=== PATIENT | male | born 1945 | race Caucasian/White ===

== ENCOUNTER → 2022-10-15 | Outpatient (CLI) | payer MEDICARE, OTHER, SELFPAY ==
--- NOTE | 2022-10-15 06:25 | ECHOCS_ITS ---
Reason For Study: HTN Procedure This was a 2D Doppler, Color Flow transthoracic echocardiogram. Contrast injection was performed. Exam performed in department. Left Ventricle Normal LV size. Left ventricular systolic function is normal. The estimated ejection fraction is 65 %. Stage 1 diastolic dysfunction. No regional wall motion abnormalities noted. Right Ventricle Normal RV size. Normal systolic function. Atria Normal left atrium. Normal right atrium. Mitral Valve Normal mitral valve. Tricuspid Valve Normal tricuspid valve. Aortic Valve Trisinus/trileaflet aortic valve. Pulmonic Valve Normal pulmonic valve. Great Vessels Normal aortic root. The pulmonary artery is normal size. Normal inferior vena cava. Pericardium/Pleural No pericardial effusion. Medication Diluted definity 2.5ml given slow IV push to enhance endocardial definition. MMode/2D Measurements & Calculations LVIDd: 6.5 cm IVSd: 1.2 cm Ao root diam: 3.7 cm LVIDs: 4.4 cm LVPWd: 1.1 cm RVDd: 3.4 cm FS: 32.0 % LAV(MOD-bp): 48.3 ml LVAd ap4: 43.0 cm2 SV(MOD-sp4): 101.5 ml LAV(MOD-bp) Indexed: 18.9 ml/m2 LVLd ap4: 8.5 cm LAV(MOD-sp2): 52.0 ml EDV(MOD-sp4): 177.2 ml LAV(MOD-sp4): 45.8 ml EDV(sp4-el): 185.2 ml LVAs ap4: 26.3 cm2 LVLs ap4: 8.0 cm ESV(MOD-sp4): 75.6 ml ESV(sp4-el): 73.1 ml EF(MOD-sp4): 57.3 % EF(sp4-el): 60.5 % SV(sp4-el): 112.1 ml LA A4 area: 17.9 cm2 LA dimension(2D): 3.9 cm RA A4 area: 10.2 cm2 Time Measurements MV dec time: 0.31 sec Doppler Measurements & Calculations MV E max charles: 66.8 cm/sec Lat Peak E' Charles: 7.2 cm/sec Med Peak E' Charles: 6.4 cm/sec MV A max charles: 78.1 cm/sec E/E' lat: 9.2 E/E' med: 10.5 MV E/A: 0.86 MV dec slope: 218.4 cm/sec2 Ao V2 max: 139.6 cm/sec LV V1 max: 102.9 cm/sec Ao max P.8 mmHg LV V1 max P.2 mmHg Ao V2 mean: 98.1 cm/sec Ao mean P.4 mmHg Ao V2 VTI: 33.2 cm PA V2 max: 89.9 cm/sec ECHO/Echo Complete W/ Contrast Interpretation Summary Normal LV size. Left ventricular systolic function is normal. The estimated ejection fraction is 65 %. Stage 1 diastolic dysfunction. Ordering Physician: John Paul Yen Referring Physician: Sander Colón Performed By: Lalita Snyder, JAKOB, RVT
--- NOTE | 2022-10-15 15:21 | STRESSREP ---
Stress Test Report Pharmacologic myocardial perfusion stress test. 77-year-old man with a history of hypertension Resting EKG demonstrates sinus bradycardia with a rate of 59 bpm. Resting blood pressure is 148/74 mmHg. 0.4 mg of regadenoson was infused per usual protocol followed by rapid intravenous saline flush injection. Continuous EKG monitoring was performed. The maximum heart rate was 98 bpm which was 67% of max impacted heart rate the maximum workload was 1 metabolic equivalent. At rest there were no ST or T wave changes noted to suggest ischemia and at peak infusion nonspecific ST changes were noted which did not meet the criteria for ischemia. No clinical angina is noted. The final blood pressure was 150/64 mmHg. Myocardial perfusion protocol. 14.9 mCi of technetium 99m sestamibi was injected at rest. 0.4 mg of regadenoson was infused per usual protocol. At peak infusion 45 mCi of technetium 99m sestamibi was injected stress images were obtained stress and rest images were reconstructed and compared in the short axis vertical long and horizontal long axis. Gated images were also obtained. Perfusion SPECT analysis: Review of the stress images demonstrate normal uptake of tracer noted in all areas of the myocardium. The resting images similar demonstrated normal uptake of tracer noted in all areas of the myocardium. No areas of reversibility are noted to suggest ischemia and no previous infarct is noted. Conclusion: Normal pharmacologic myocardial perfusion stress test.
== END | disposition home or self-care (01) ==
LOC: CVS 06:24
PROVIDERS: PCP Family Medicine; Referring Provider Internal Medicine Cardiovascular Disease; Visit Provider Internal Medicine Cardiovascular Disease
DX: I10 Essential (primary) hypertension (principal); R94.31 Abnormal electrocardiogram [ECG] [EKG]
CPT/HCPCS: 78452; 93017; 93306; A9500; Q9957; A4216; C8929; J2785

== ENCOUNTER → 2023-11-29 | Outpatient (CLI) | payer MEDICARE, OTHER, SELFPAY ==
[2023-11-29 11:56] LABS: Absolute Lymphocyte Count 1.76 X10^3/uL (0.83-4.51); Absolute Neutrophil Count 4.1 X10^3/uL (2.0-7.7); Basophil# 0.06 X10^3/uL; Basophil% 0.9 % (0-1); Eosinophil# 0.16 X10^3/uL; Eosinophils% 2.4 % (0-5); Hematocrit 40.4 % (40-54); Lymphocyte # 1.76 X10^3/ul (0.83-4.51); Lymphocyte % 26.2 % (19-41); Mean Corp Hgb Conc 32.2 g/dL (32-36); Mean Corpuscular Hgb 28.9 pg (27.0-32.0); Mean Corpuscular Volume 89.8 fL (80-94); Mean Platelet Vol. 11.3 fl (6.2-12.0); Monocyte# 0.63 X10^3/uL; Monocyte% 9.4 % (0-10); NRBC Flagged by Analyzer 0 % (0-5); Neutrophil # 4.09 X10^3/uL (2.7-7.7); Neutrophil % 60.7 % (47-70); Platelet Count 236 K/mm3 (150-450); RBC Distribution Width CV 13.1 % (11.6-14.6); RBC Distribution Width SD 42.6 fl (35.1-43.9); White Blood Count 6.7 K/mm3 (4.4-11.0)
[2023-11-29 12:40] LABS: ALB/GLOB Ratio 1.1 RATIO (0.9-2.4); AST(SGOT) 26 U/L (15-37); Alanine Aminotransfer ALT/SGPT 30 U/L (16-61); Albumin, Serum 3.6 g/dL (3.2-5.0); Alkaline Phosphatase 81 U/L (45-117); Anion Gap 4 (5-15); BUN 21 mg/dL (7-18); BUN/Creat Ratio 22.2 RATIO (10-20); Calcium,Total 8.7 mg/dL (8.5-10.1); Chloride 109 mmol/L (98-107); Creatinine, Serum 0.95 mg/dL (0.70-1.30); EST Glomerular Filtration Rate 82 mL/min (>60); Est Glom Filt Rate - Afr Amer 99 mL/min (>60); Globulin 3.2 g/dL (2.2-4.2); Glucose 138 mg/dL (74-106); Potassium 4.3 mmol/L (3.5-5.1); Protein, Total 6.8 g/dL (6.4-8.2); Sodium Level 140 mmol/L (136-145)
== END | disposition home or self-care (01) ==
PROVIDERS: PCP Family Medicine; Referring Provider Podiatrist; Visit Provider Podiatrist
DX: L03.116 Cellulitis of left lower limb (principal)
CPT/HCPCS: 36415; 80053; 85025; 87070; 87075; 87077; 87186; 87205